=== PATIENT | female | born 1950 | race Caucasian/White ===

== ENCOUNTER 2017-02-06 15:20 | Emergency (ER) | payer MEDICARE, MEDICAID, OTHER ==
[~2017-02-06] VITALS: Ht 167.6 cm; Wt 116.0 kg
--- NOTE | 2017-02-06 16:09 | NUR ---
Pt [facility] medications [facility].
[2017-02-06 16:46] LABS: BASOPHILS % (AUTO) 0 % (0-2); EOSINOPHILS # (AUTO) 0.3 10^3uL; EOSINOPHILS % (AUTO) 2 % (0-4); LYMPHOCYTES # (AUTO) 1.5 X10^3; MEAN CORPUSCULAR HEMOGLOBIN 31.2 PG (26.0-34.0); MEAN CORPUSCULAR HGB CONC 32.8 g/dL (31.0-37.0); MEAN CORPUSCULAR VOLUME 95 FL (80-100); MEAN PLATELET VOLUME 9.4 FL (6.0-9.5); MONOCYTES # (AUTO) 1.3 X10^3; MONOCYTES % (AUTO) 9 % (3-11); NEUTROPHILS # (AUTO) 12.5 X10^3; NEUTROPHILS % (AUTO) 79 % (51-67); PLATELET COUNT 545 10^3uL (150-450); WHITE BLOOD COUNT 15.72 10^3uL (4.0-11.0)
[2017-02-06 16:59] LABS: ALKALINE PHOSPHATASE 125 U/L (38-126); ANION GAP 14.1 MEQ/L (3-15); BUN/CREATININE RATIO 17 (10-20); CALCULATED IONIZED CALCIUM 4.2 mg/dL (3.8-4.6); TOTAL PROTEIN 6.1 g/dL (6.4-8.5)
--- NOTE | 2017-02-06 18:00 | NUR ---
Dr. Wheatley speaking with family regarding findings and proposed [id number].
--- NOTE | 2017-02-06 19:02 | NUR ---
REPORT TO KECIA HOGAN RN AT [facility]
[2017-02-06 19:07] VITALS: BP 88/51
--- NOTE | 2017-02-06 19:16 | NUR ---
750 MLS EMPTIED FROM [facility]
== END 2017-02-06 19:09 | disposition short-term general hospital (02) ==
LOC: ED 15:28
DX: J44.1 Chronic obstructive pulmonary disease with (acute) exacerbation (principal); I50.9 Heart failure, unspecified; R09.02 Hypoxemia; Z79.01 Long term (current) use of anticoagulants; E11.9 Type 2 diabetes mellitus without complications; Z79.84 Long term (current) use of oral hypoglycemic drugs
CPT/HCPCS: 36415; 71010; 80053; 83036; 83605; 83880; 84484; 85025; 87040; 96360; 96361; 99285; J7030; 93010; 99284

== ENCOUNTER → 2017-02-06 | Outpatient (CLI) | payer MEDICARE, MEDICAID, OTHER | LOC: EMS 15:05 | PROVIDERS: ATTEND Internal Medicine | DX: R06.00 Dyspnea, unspecified (principal); J44.9 Chronic obstructive pulmonary disease, unspecified; I50.9 Heart failure, unspecified; I95.9 Hypotension, unspecified ==